=== PATIENT | male | born 1955 | race African-American/Black ===

== ENCOUNTER → 2017-06-20 | Outpatient (CLI) | payer BC ==
[~2017-06-20] MED LIST: ASPIR 8181 M1 PO; ASPIR-LOW81 MG PO; CYMBALTA60 MG PO; FENOFIBRATE40 MG PO; HUMALOG KW200 UNIT/1 SC; HUMALOG SQ; INSULIN PUMP SCCONT; KLOR-CON M2020 MEQ PO; LANTUS 10100 UNITS/ SC; LASIX20 MG PO; LEVAQUIN750 MG PO; LEVEMIR FL100 UNIT/1 SC; LOSARTAN POTAS100 MG PO; LUPRON; NABUMETONE750 MG PO; OMNIPRED10 ML BOTH EYES; PERCOCET 5/31 TABLET PO; PRAVASTATIN SOD20 MG PO; PREDNISONE BOTH EYES; RAPAFLO4 MG PO; RELAFEN PO
== END | disposition home or self-care (01) ==
LOC: PICC 08:30
DX: M86.9 Osteomyelitis, unspecified (principal)
CPT/HCPCS: 76937

== ENCOUNTER → 2017-07-18 | Outpatient (CLI) | payer BC | END | disposition home or self-care (01) | LOC: CDC 09:16 | DX: Z01.810 Encounter for preprocedural cardiovascular examination (principal); R94.31 Abnormal electrocardiogram [ECG] [EKG] | CPT/HCPCS: 93000 ==